=== PATIENT | female | born 1950 | race Caucasian/White ===

== ENCOUNTER 2019-07-29 10:02 | Day surgery (SDC) | payer MEDICARE ==
[2019-07-29] MEDS ORDERED: Xylocaine 1% Vial 30 ML PF IJ ONE (10:03)
[2019-07-29] MEDS ORDERED: Depo-Medrol 40 MG/ML IM ONE (10:03)
[2019-07-29] MEDS ORDERED: Sodium Chloride 0.9(Preservative Free) 10 ML IJ ONE (10:03)
[2019-07-29] MEDS ORDERED: DIPRIVAN 200 MG/20 ML IV ONE (10:56)
[2019-07-29] MEDS ORDERED: Ketamine HCl 50 MG/ML ONE (10:56)
--- NOTE | 2019-07-29 14:15 | XRAY ---
Indication: Lumbar YAN. Intraoperative fluoroscopy was provided for 15 seconds. 2 digital spot images submitted for interpretation demonstrates midline posterior needle tip projecting just posterior to the L5-S1 interspace. Correlate with intraoperative findings/report.
--- NOTE | 2019-07-29 14:20 | XRAY ---
15 seconds fluoroscopy time in surgery for lumbar YAN.
[2019-07-29] MEDS ORDERED: Lactated Ringers 1,000 ML IV ONE (15:24)
== END 2019-07-29 11:25 | disposition home or self-care (01) ==
LOC: SDC-PAIN 10:02
PROVIDERS: ATTEND Psychiatry & Neurology Pain Medicine
DX: M54.16 Radiculopathy, lumbar region (principal); I10 Essential (primary) hypertension; K21.9 Gastro-esophageal reflux disease without esophagitis; I89.0 Lymphedema, not elsewhere classified; H53.009 Unspecified amblyopia, unspecified eye; D18.09 Hemangioma of other sites; F41.8 Other specified anxiety disorders; Z79.899 Other long term (current) drug therapy
CPT/HCPCS: 62323; 72100; 77003; J1030; J2001; J2704; Q9966

== ENCOUNTER 2019-09-02 14:04 | Day surgery (SDC) | payer MEDICARE ==
[2019-09-02] MEDS ORDERED: Depo-Medrol 40 MG/ML IM ONE (14:05)
[2019-09-02] MEDS ORDERED: Sodium Chloride 0.9(Preservative Free) 10 ML IJ ONE (14:05)
[2019-09-02] MEDS ORDERED: DIPRIVAN 200 MG/20 ML IV ONE (15:01)
[2019-09-02] MEDS ORDERED: Ketamine HCl 50 MG/ML ONE (15:02)
[2019-09-02] MEDS ORDERED: Lactated Ringers 1,000 ML IV ONE (16:18)
--- NOTE | 2019-09-02 17:07 | XRAY ---
Indication: Left L4-S1 YAN. Intraoperative fluoroscopy was provided for 32 seconds. 4 digital spot images submitted for interpretation demonstrates posterior needle tips projecting over the expected course of the left L4 and L5 nerve roots. Small amount of contrast injected for needle tip placement. Correlate with intraoperative findings/report.seconds.
--- NOTE | 2019-09-02 17:13 | XRAY ---
32 seconds fluoroscopy time in surgery for left L4-S1 YAN.
== END 2019-09-02 15:33 | disposition home or self-care (01) ==
LOC: SDC-PAIN 14:04
PROVIDERS: ATTEND Psychiatry & Neurology Pain Medicine
DX: M54.16 Radiculopathy, lumbar region (principal); I10 Essential (primary) hypertension; K21.9 Gastro-esophageal reflux disease without esophagitis; I89.0 Lymphedema, not elsewhere classified; F41.8 Other specified anxiety disorders; Z79.899 Other long term (current) drug therapy
CPT/HCPCS: 72100; 77003; J1030; J2704

== ENCOUNTER 2019-09-23 12:48 | Day surgery (SDC) | payer MEDICARE ==
[2019-09-23] MEDS ORDERED: Depo-Medrol 40 MG/ML IM ONE (12:49)
[2019-09-23] MEDS ORDERED: Marcaine Mpf 0.5% Vial 30 Ml IJ ONE (12:49)
[2019-09-23] MEDS ORDERED: Versed 2 MG/2 ML Injection ONE (14:00)
[2019-09-23] MEDS ORDERED: DIPRIVAN 200 MG/20 ML IV ONE (14:07)
[2019-09-23] MEDS ORDERED: Ketamine HCl 50 MG/ML ONE (14:07)
--- NOTE | 2019-09-23 16:57 | XRAY ---
Indication: Right knee injection. Intraoperative fluoroscopy was provided for 6 seconds. Single digital spot image submitted for interpretation demonstrates needle tip projecting over the right femur intercondylar notch. Small amount of contrast injected for needle tip placement. Correlate with intraoperative findings/report.
--- NOTE | 2019-09-23 16:57 | XRAY ---
Indication: Left knee injection. Intraoperative fluoroscopy was provided for 12 seconds. 2 digital spot images submitted for interpretation demonstrates needle tip projecting over the left femur intercondylar notch. Small amount of contrast injected for needle tip placement. Correlate with intraoperative findings/report.
--- NOTE | 2019-09-23 17:04 | XRAY ---
6 seconds fluoroscopy time in surgery for right knee injection.
--- NOTE | 2019-09-23 17:04 | XRAY ---
12 seconds fluoroscopy time in surgery for left knee injection.
[2019-09-23] MEDS ORDERED: Lactated Ringers 1,000 ML IV ONE (17:05)
== END 2019-09-23 14:33 | disposition home or self-care (01) ==
LOC: SDC-PAIN 12:48
PROVIDERS: ATTEND Psychiatry & Neurology Pain Medicine
DX: M17.0 Bilateral primary osteoarthritis of knee (principal); I10 Essential (primary) hypertension; K21.9 Gastro-esophageal reflux disease without esophagitis; D18.09 Hemangioma of other sites; H53.009 Unspecified amblyopia, unspecified eye; I89.0 Lymphedema, not elsewhere classified; F41.8 Other specified anxiety disorders; Z79.899 Other long term (current) drug therapy
CPT/HCPCS: 20610; 73560; 77002; J1030; J2250; J2704; Q9966

== ENCOUNTER 2020-04-13 13:04 | Day surgery (SDC) | payer MEDICARE ==
[~2020-04-13 13:04] MED LIST: DIPRIVAN 200 MG/20 ML IV ONE; Ketamine HCl 50 MG/ML ONE
[2020-04-13] MEDS ORDERED: Marcaine 0.5% SDV 10 ML IJ ONE (13:05)
[2020-04-13] MEDS ORDERED: Depo-Medrol 40 MG/ML IM ONE (13:05)
--- NOTE | 2020-04-13 16:27 | XRAY ---
Indication: Left knee injection. Intraoperative fluoroscopy was provided for 6 seconds. Single digital spot images submitted for interpretation demonstrates anterior needle tip projecting left femur intercondylar notch. Small amount of contrast injected for needle tip placement. Correlate with intraoperative findings/report.
--- NOTE | 2020-04-13 16:29 | XRAY ---
Indication: Right knee injection. Intraoperative fluoroscopy was provided for 9 seconds. Single digital spot images submitted for interpretation demonstrates anterior needle tip projecting right femur intercondylar notch. Small amount of contrast injected for needle tip placement. Correlate with intraoperative findings/report.
[2020-04-13] MEDS ORDERED: Lactated Ringers 1,000 ML IV ONE (16:38)
--- NOTE | 2020-04-13 16:38 | XRAY ---
6 seconds fluoroscopy time in surgery for left intra-articular knee injection.
--- NOTE | 2020-04-13 16:48 | XRAY ---
9 seconds fluoroscopy time in surgery for right intra-articular knee injection.
== END 2020-04-13 15:01 | disposition home or self-care (01) ==
LOC: SDC-PAIN 13:04
PROVIDERS: ATTEND Psychiatry & Neurology Pain Medicine
DX: M17.0 Bilateral primary osteoarthritis of knee (principal); I10 Essential (primary) hypertension; K21.9 Gastro-esophageal reflux disease without esophagitis; I89.0 Lymphedema, not elsewhere classified; Z79.899 Other long term (current) drug therapy
CPT/HCPCS: 20610; 73560; 77002; J1030; J2704; Q9966

== ENCOUNTER 2020-06-08 09:07 | Day surgery (SDC) | payer MEDICARE ==
[2020-06-08] MEDS ORDERED: Sodium Chloride 0.9(Preservative Free) 10 ML IJ ONE (09:08)
[2020-06-08] MEDS ORDERED: Depo-Medrol 40 MG/ML IM ONE (09:08)
[2020-06-08] MEDS ORDERED: DIPRIVAN 200 MG/20 ML IV ONE (10:26)
[2020-06-08] MEDS ORDERED: Ketamine HCl 50 MG/ML ONE (10:26)
--- NOTE | 2020-06-08 11:41 | XRAY ---
38 seconds fluoroscopy time in surgery for left L4-S1 transforaminal YAN.
--- NOTE | 2020-06-08 11:41 | XRAY ---
Indication: Left L4-S1 transforaminal YAN. Intraoperative fluoroscopy was provided for 38 seconds. 4 digital spot images submitted for interpretation demonstrates posterior needle tips projecting over the expected left L4 and L5 nerve roots. Small amount of contrast injected for needle tip placement. Correlate with intraoperative findings/report.
[2020-06-08] MEDS ORDERED: Lactated Ringers 1,000 ML IV ONE (15:24)
== END 2020-06-08 11:05 | disposition home or self-care (01) ==
LOC: SDC-PAIN 09:07
PROVIDERS: ATTEND Psychiatry & Neurology Pain Medicine
DX: M54.16 Radiculopathy, lumbar region (principal); I10 Essential (primary) hypertension; K21.9 Gastro-esophageal reflux disease without esophagitis; I89.0 Lymphedema, not elsewhere classified; Z79.899 Other long term (current) drug therapy
CPT/HCPCS: 64483; 64484; 72100; 77003; J1030; J2704; Q9966

== ENCOUNTER 2020-06-29 13:23 | Day surgery (SDC) | payer MEDICARE ==
[~2020-06-29 13:23] MED LIST changes: +BREVIBLOC 100 MG/10 ML IV ONE; -Ketamine HCl 50 MG/ML ONE
[2020-06-29] MEDS ORDERED: Depo-Medrol 40 MG/ML IM ONE (13:24)
[2020-06-29] MEDS ORDERED: Sodium Chloride 0.9(Preservative Free) 10 ML IJ ONE (13:24)
[2020-06-29] MEDS ORDERED: Lactated Ringers 1,000 ML IV ONE (15:53)
--- NOTE | 2020-06-29 16:23 | XRAY ---
Indication: Left L4-S1 transforaminal YAN. Intraoperative fluoroscopy was provided for 36 seconds. 3 digital spot images submitted for interpretation demonstrates posterior needle tips projecting over the expected left L4 and L5 nerve roots. Small amount of contrast injected for needle tip placement. Correlate with intraoperative findings/report.
--- NOTE | 2020-06-29 16:29 | XRAY ---
36 seconds fluoroscopy time in surgery for left L4-S1 transforaminal YAN
== END 2020-06-29 16:08 | disposition home or self-care (01) ==
LOC: SDC-PAIN 13:23
PROVIDERS: ATTEND Psychiatry & Neurology Pain Medicine
DX: M54.16 Radiculopathy, lumbar region (principal); I10 Essential (primary) hypertension; K21.9 Gastro-esophageal reflux disease without esophagitis; I89.0 Lymphedema, not elsewhere classified; Z79.899 Other long term (current) drug therapy
CPT/HCPCS: 72100; 77003; J1030; J2704

== ENCOUNTER 2020-07-13 09:18 | Day surgery (SDC) | payer MEDICARE ==
[~2020-07-13 09:18] MED LIST changes: -BREVIBLOC 100 MG/10 ML IV ONE; +Ketamine HCl 50 MG/ML ONE
[2020-07-13] MEDS ORDERED: Sodium Chloride 0.9(Preservative Free) 10 ML IJ ONE (09:19)
[2020-07-13] MEDS ORDERED: Lactated Ringers 1,000 ML IV ONE (09:19)
[2020-07-13] MEDS ORDERED: Depo-Medrol 40 MG/ML IM ONE (09:19)
--- NOTE | 2020-07-13 13:12 | XRAY ---
Indication: Left L4-S1 transforaminal YAN. Intraoperative fluoroscopy was provided for 1 minute 10 seconds. 5 digital spot images submitted for interpretation demonstrates posterior needle tips projecting over the expected course of the left L5 and S1 nerve roots. Small amount of contrast injected for needle tip placement. Correlate with intraoperative findings/report.
--- NOTE | 2020-07-13 13:16 | XRAY ---
1 minute and 10 seconds fluoroscopy time in surgery for left L4-S1 transforaminal YAN
== END 2020-07-13 11:36 | disposition home or self-care (01) ==
LOC: SDC-PAIN 09:18
PROVIDERS: ATTEND Psychiatry & Neurology Pain Medicine
DX: M54.16 Radiculopathy, lumbar region (principal); I10 Essential (primary) hypertension; I89.0 Lymphedema, not elsewhere classified; H53.009 Unspecified amblyopia, unspecified eye; K21.9 Gastro-esophageal reflux disease without esophagitis; Z79.899 Other long term (current) drug therapy
CPT/HCPCS: 64483; 64484; 72100; 77003; J1030; J2704; Q9966

== ENCOUNTER 2020-11-16 09:56 | Day surgery (SDC) | payer MEDICARE ==
[2020-11-16] MEDS ORDERED: BUPIVACAINE 0.5% VIAL IJ ONE (09:57)
[2020-11-16] MEDS ORDERED: Depo-Medrol 40 MG/ML IM ONE (09:57)
[2020-11-16] MEDS ORDERED: DIPRIVAN 200 MG/20 ML IV ONE (12:14)
[2020-11-16] MEDS ORDERED: Ketamine HCl 50 MG/ML ONE (12:14)
--- NOTE | 2020-11-16 13:05 | XRAY ---
Indication: Left knee injection. Intraoperative fluoroscopy was provided for 8 seconds. Single digital spot image submitted for interpretation demonstrates needle tip projecting over the left femur intercondylar notch. Small amount of contrast injected for needle tip placement. Correlate with intraoperative findings/report.
--- NOTE | 2020-11-16 13:05 | XRAY ---
Indication: Right knee injection. Intraoperative fluoroscopy was provided for 14 seconds. Single digital spot image submitted for interpretation demonstrates needle tip projecting over the right femur intercondylar notch. Small amount of contrast injected for needle tip placement. Correlate with intraoperative findings/report.
--- NOTE | 2020-11-16 13:08 | XRAY ---
8 seconds fluoroscopy time in surgery for intra-articular injection of the left knee.
--- NOTE | 2020-11-16 13:08 | XRAY ---
14 seconds fluoroscopy time in surgery for intra-articular injection of the right knee.
[2020-11-16] MEDS ORDERED: Lactated Ringers 1,000 ML IV ONE (14:38)
== END 2020-11-16 12:53 | disposition home or self-care (01) ==
LOC: SDC-PAIN 09:56
PROVIDERS: ATTEND Psychiatry & Neurology Pain Medicine
DX: M17.0 Bilateral primary osteoarthritis of knee (principal); I10 Essential (primary) hypertension; K21.9 Gastro-esophageal reflux disease without esophagitis; H53.009 Unspecified amblyopia, unspecified eye; I89.0 Lymphedema, not elsewhere classified; Z79.899 Other long term (current) drug therapy
CPT/HCPCS: 20610; 73560; 77002; J1030; J2704; Q9966

== ENCOUNTER 2022-09-11 10:43 | Observation (INO) | payer MEDICARE, OTHER ==
[2022-09-11] MEDS ORDERED: Sodium Chloride 0.9% 1000 ML 1,000 ML IV SCH (12:15)
[2022-09-11 12:24] LABS: Absolute Neutrophil Ct (ANC) 5.79 x10^3/uL (1.4-6.9); Basophil (Absolute #) 0.03 x10^3/uL (0-0.4); Eosinophil % 1.5 % (0.00-5.0); Eosinophil (Absolute #) 0.12 x10^3/uL (0-0.5); Hematocrit 39.1 % (35-47); Hemoglobin 11.9 g/dL (12.0-16.0); Lymphocyte (Absolute #) 1.26 x10^3/uL (1.0-4.6); Lymphocytes % 16.2 % (24.0-44.0); Mean Cell Volume 96.5 fL (78-100); Mean Corpuscular Hemoglobin 29.4 pg (26-32); Mean Corpuscular Hgb Concent. 30.4 g/dL (32-36); Mean Platelet Volume 10.2 fL (7.5-11.0); Monocyte (Absolute #) 0.56 x10^3/uL (0.0-1.3); Monocytes % 7.2 % (0.0-12.0); Neutrophil % 74.3 % (36.0-66.0); Platelet Count 157 x10^3/uL (150-450); Red Blood Count 4.05 x10^6/uL (4.1-5.4); Red Cell Distribution Width 12.9 % (11.5-14.0); White Blood Count 7.8 x10^3/uL (4.0-10.5)
[2022-09-11 12:28] LABS: INFLUENZA A NEGATIVE (NEGATIVE); INFLUENZA B NEGATIVE (NEGATIVE); RESPIRATORY SYNCTIAL VIRUS NEGATIVE (Negative); SARS-CoV-2 Xpert Express NEGATIVE (NEGATIVE)
[2022-09-11 12:43] LABS: ALBUMIN 4.1 g/dL (3.5-5.0); ALKALINE PHOSPHATASE 74 U/L (38-126); ANION GAP 12.9 MEQ/L (5-15); BLOOD UREA NITROGEN 23 mg/dL (7-17); CHLORIDE 109 mmol/L (98-107); Calcium 8.8 mg/dL (8.4-10.2); Carbon Dioxide 22 mmol/L (22-30); Creatinine 1 0.92 mg/dL (0.52-1.04); EST GLOMERULAR FILTRATION RATE > 60.0 ML/MIN; Glucose 98 mg/dL (74-106); Potassium 3.6 mmol/L (3.5-5.1); SGOT/AST 27 U/L (14-36); SGPT/ALT 31 U/L (0-35); SODIUM 140 mmol/L (137-145); Total Protein 7.3 g/dL (6.3-8.2)
[2022-09-11] MEDS ORDERED: MELATONIN PO PRN (12:50)
[2022-09-11] MEDS ORDERED: CLARITIN 10 MG PO PRN (12:50)
[2022-09-11] MEDS ORDERED: ENOXAPARIN SODIUM SQ SCH (14:00)
[2022-09-11] MEDS ORDERED: MEDICATION INTERVENTION MC SCH (14:00)
[2022-09-11] MEDS ORDERED: PHARMACY DOSING REQUEST MC ONE (14:29)
[2022-09-11] MEDS ORDERED: ENOXAPARIN SODIUM SQ ONE (15:00)
--- NOTE | 2022-09-11 15:16 | XRAY ---
Indication: Dyspnea on exertion. Comparison: November 16, 2007 PA/lateral chest again demonstrates minimal left midlung fibrosis/scarring and tiny left base calcified granuloma. No focal infiltrate, consolidation, or large effusion. Heart not enlarged. Bony thorax intact again with osteopenia, degenerative changes, and double curvature scoliosis. Impression: Continued nonacute chest with chronic features.
--- NOTE | 2022-09-11 15:36 | XRAY ---
Indication: Dyspnea on exertion. Elevated d-dimer. Multiple contiguous axial images obtained through the chest using 80 cc Isovue 370 contrast and PE protocol. Comparison: None Good opacification of the pulmonary arteries to include the lobar and segmental branches. There is extensive pulmonary emboli in the left and right main pulmonary arteries. This further extends into all lobar branches bilaterally and right lower lobe segmental branches. Heart not enlarged. Aorta is normal in course and caliber. Small subcarinal calcified nodes. No pathologic mediastinal/hilar lymphadenopathy. Lungs demonstrates minimal mid to lower lung subsegmental atelectasis/scarring bilaterally. Small peripheral left lower lobe calcified granulomas. No infiltrate, effusion, or pneumothorax. Bony thorax intact with mild osteopenia, mild/moderate degenerative changes throughout the spine, and mild double curvature thoracolumbar scoliosis. Limited upper abdomen demonstrates mild fatty liver, splenic calcified granulomas, and cholecystectomy clips. Impression: 1. Extensive and diffuse bilateral pulmonary emboli as detailed. 2. Incidental atelectasis/scarring, fatty liver, chronic bony findings, and old granulomatous disease. Comment: Immediate telephone report will be given to the ordering clinician following this dictation.
[2022-09-11] MEDS ORDERED: XARELTO 10 MG TABLET PO SCH (16:00)
[2022-09-11] MEDS: MAG-OX 400 PO SCH (20:29)
[2022-09-11] MEDS: Vitamin C 500 MG PO SCH (20:29)
[2022-09-11] MEDS: ZOLOFT 50 MG TABLET PO SCH (20:29)
[2022-09-11] MEDS: Protonix 40MG Tablet PO SCH (20:30)
[2022-09-11] MEDS: TOPIRAMATE PO SCH (20:30)
[2022-09-11] MEDS: Klor Con PO SCH (20:31)
--- NOTE | 2022-09-11 20:58 | XRAY ---
Indication: Pulmonary embolus. Elevated d-dimer. 2-dimensional sonogram ankle Doppler imaging of the major venous vessels of the left and right leg performed. Comparison: None Examination of the right leg demonstrates nonoccluding thrombi in the distal superficial femoral, popliteal, and posterior tibial veins. No thrombus in the remaining common femoral, proximal superficial femoral, deep femoral, and greater saphenous veins. Examination of the left leg demonstrates nonoccluding thrombi in the popliteal and posterior tibial veins. No thrombus in the remaining common femoral, superficial femoral, deep femoral, and greater saphenous veins. Impression: Nonoccluding bilateral DVTs as detailed. Comment: Preliminary report was given to patient's nurse.
[2022-09-11] MEDS ORDERED: DESMOPRESSIN ACETATE 0.2 MG PO SCH (22:00)
[2022-09-11] MEDS ORDERED: NON-FORMULARY ITEM (Omeprazole [Omeprazole] 40 MG Capsule.Dr) PO SCH (22:00)
[2022-09-11] MEDS ORDERED: MAG-OX 400 PO SCH (22:00)
[2022-09-11] MEDS ORDERED: NON-FORMULARY ITEM (Potassium Gluconate [Potassium Gluconate] 500 MG Tablet) PO SCH (22:00)
[2022-09-11] MEDS ORDERED: NON-FORMULARY ITEM (Topiramate 100 Mg*** [Topamax 100 Mg***] 100 MG Tablet) PO SCH (22:00)
[2022-09-11] MEDS ORDERED: Lopressor 50 MG PO SCH (22:00)
[2022-09-11] MEDS ORDERED: NON-FORMULARY ITEM (Magnesium Oxide [Magnesium] 500 MG Capsule) PO SCH (22:00)
[2022-09-12] MEDS ORDERED: ENOXAPARIN SODIUM SQ SCH (06:00)
--- NOTE | 2022-09-12 07:28 | PCM.HP.ADD ---
Addendum to History & Physical - History & Physical Addendum Addendum to History & Physical: This certifies that the History & Physical in the electronic chart reflects the current health status of the patient. If there are changes in the H&P these changes/exceptions are listed as follows.
--- NOTE | 2022-09-12 07:33 | PCM.NOTE ---
Date and Time: 09/12/22727 Subjective Assessment: still very short of breath. Last 24 hours events noted - Review of Systems Constitutional: No Fever, No Chills Eyes: No Symptoms Ears, Nose, & Throat: No Symptoms Respiratory: Short Of Breath, No Cough Cardiac: No Chest Pain, No Edema, No Syncope Abdominal/Gastrointestinal: No Abdominal Pain, No Nausea, No Vomiting, No Diarrhea Genitourinary Symptoms: No Dysuria Musculoskeletal: No Back Pain, No Neck Pain Skin: No Rash Neurological: No Dizziness, No Focal Weakness, No Sensory Changes Psychological: No Symptoms Endocrine: No Symptoms Hematologic/Lymphatic: No Symptoms Immunological/Allergic: No Symptoms Objective Exam General Appearance: no apparent distress, alert Neurologic Exam: alert, oriented x 3, cooperative, normal mood/affect, nml cerebellar function, sensation nml, No motor deficits Skin Exam: normal color, warm, dry Eye Exam: PERRL, EOMI, eyes nml inspection Ears, Nose, Throat Exam: normal ENT inspection, pharynx normal, moist mucous membranes Neck Exam: normal inspection, non-tender, supple, full range of motion Respiratory Exam: respiratory distress, diminished breath sounds, wheezing Cardiovascular Exam: regular rate/rhythm, normal heart sounds Gastrointestinal/Abdomen Exam: soft, No tenderness, No mass Extremity Exam: normal inspection, normal range of motion Back Exam: normal inspection, normal range of motion, No CVA tenderness, No vertebral tenderness Pelvic Exam: deferred Rectal Exam: deferred OBJECTIVE DATA Vital Signs: Vital Signs - 24 hr Temp Pulse Resp BP Pulse Ox 09/12/22 07:23 97.4 F 72 16 133/74 96 09/12/22 04:00 97.5 F 69 20 97/55 95 09/11/22 23:59 97.3 F 73 16 111/55 92 L 09/11/22 20:03 96 09/11/22 20:00 97.7 F 88 18 114/55 97 09/11/22 16:00 97.5 F 70 18 124/78 96 09/11/22 13:46 98 09/11/22 10:58 97.5 F 93 H 18 160/72 95 Pain Assessment - Last Documented Pain Intensity 0 Intake and Output: Intake & Output 09/09/22 09/10/22 09/11/22 09/12/22 11:59 11:59 11:59 11:59 Intake Total 1571 Balance 1571 Weight 104.2 kg Lab Results: Lab Results-Last 24 Hours 09/11/22 09/11/22 09/11/22 Range/Units 11:50 12:16 12:16 WBC 7.8 (4.0-10.5) x10^3/uL RBC 4.05 L (4.1-5.4) x10^6/uL Hgb 11.9 L (12.0-16.0) g/dL Hct 39.1 (35-47) % MCV 96.5 (78-100) fL MCH 29.4 (26-32) pg MCHC 30.4 L (32-36) g/dL RDW 12.9 (11.5-14.0) % Plt Count 157 (150-450) x10^3/uL MPV 10.2 (7.5-11.0) fL Gran % 74.3 H (36.0-66.0) % Immature Gran % (Auto) 0.4 (0.00-0.4) % Nucleat RBC Rel Count 0.0 (0.00-0.1) % Eos # (Auto) 0.12 (0-0.5) x10^3/uL Immature Gran # (Auto) 0.03 (0.00-0.03) x10^3u/L Absolute Lymphs (auto) 1.26 (1.0-4.6) x10^3/uL Absolute Monos (auto) 0.56 (0.0-1.3) x10^3/uL Absolute Nucleated RBC 0.00 (0.00-0.01) x10^3u/L Lymphocytes % 16.2 L (24.0-44.0) % Monocytes % 7.2 (0.0-12.0) % Eosinophils % 1.5 (0.00-5.0) % Basophils % 0.4 (0.0-0.4) % Absolute Granulocytes 5.79 (1.4-6.9) x10^3/uL Basophils # 0.03 (0-0.4) x10^3/uL D-Dimer (0.0-0.50) mg/L Sodium 140 (137-145) mmol/L Potassium 3.6 (3.5-5.1) mmol/L Chloride 109 H (98-107) mmol/L Carbon Dioxide 22 (22-30) mmol/L Anion Gap 12.9 (5-15) MEQ/L BUN 23 H (7-17) mg/dL Creatinine 0.92 (0.52-1.04) mg/dL Estimated GFR > 60.0 ML/MIN Glucose 98 (74-106) mg/dL Calcium 8.8 (8.4-10.2) mg/dL Total Bilirubin 0.40 (0.2-1.3) mg/dL AST 27 (14-36) U/L ALT 31 (0-35) U/L Alkaline Phosphatase 74 (38-126) U/L NT-Pro-B Natriuret Pep (0-900) pg/mL Serum Total Protein 7.3 (6.3-8.2) g/dL Albumin 4.1 (3.5-5.0) g/dL Influenza Type A Ag NEGATIVE (NEGATIVE) Influenza Type B Ag NEGATIVE (NEGATIVE) RSV (PCR) NEGATIVE (Negative) SARS-CoV-2 (PCR) NEGATIVE (NEGATIVE) 09/11/22 09/11/22 Range/Units 12:16 12:18 WBC (4.0-10.5) x10^3/uL RBC (4.1-5.4) x10^6/uL Hgb (12.0-16.0) g/dL Hct (35-47) % MCV (78-100) fL MCH (26-32) pg MCHC (32-36) g/dL RDW (11.5-14.0) % Plt Count (150-450) x10^3/uL MPV (7.5-11.0) fL Gran % (36.0-66.0) % Immature Gran % (Auto) (0.00-0.4) % Nucleat RBC Rel Count (0.00-0.1) % Eos # (Auto) (0-0.5) x10^3/uL Immature Gran # (Auto) (0.00-0.03) x10^3u/L Absolute Lymphs (auto) (1.0-4.6) x10^3/uL Absolute Monos (auto) (0.0-1.3) x10^3/uL Absolute Nucleated RBC (0.00-0.01) x10^3u/L Lymphocytes % (24.0-44.0) % Monocytes % (0.0-12.0) % Eosinophils % (0.00-5.0) % Basophils % (0.0-0.4) % Absolute Granulocytes (1.4-6.9) x10^3/uL Basophils # (0-0.4) x10^3/uL D-Dimer 12.30 H* (0.0-0.50) mg/L Sodium (137-145) mmol/L Potassium (3.5-5.1) mmol/L Chloride (98-107) mmol/L Carbon Dioxide (22-30) mmol/L Anion Gap (5-15) MEQ/L BUN (7-17) mg/dL Creatinine (0.52-1.04) mg/dL Estimated GFR ML/MIN Glucose (74-106) mg/dL Calcium (8.4-10.2) mg/dL Total Bilirubin (0.2-1.3) mg/dL AST (14-36) U/L ALT (0-35) U/L Alkaline Phosphatase (38-126) U/L NT-Pro-B Natriuret Pep 4070 H (0-900) pg/mL Serum Total Protein (6.3-8.2) g/dL Albumin (3.5-5.0) g/dL Influenza Type A Ag (NEGATIVE) Influenza Type B Ag (NEGATIVE) RSV (PCR) (Negative) SARS-CoV-2 (PCR) (NEGATIVE) Radiology Exams: Radiology Procedures Category Date Time Status ABDOMEN AND PELVIS W/0 CONTRAS [CT] Urgent Exams 09/11/22 15:59 Taken CHEST 2 VIEWS (PA AND LAT) Stat Exams 09/11/22 12:22 Completed CHEST WITH CONTRAST [CT] Routine Exams 09/11/22 12:09 Completed ECHO W/2D AND DOPPLER [US] Routine Exams 09/12/22 16:03 Ordered VENOUS BILATERAL EXTREMITY [US] Urgent Exams 09/11/22 16:03 Completed US/VENOUS BILATERAL EXTREMITY Indication: Pulmonary embolus. Elevated d-dimer. 2-dimensional sonogram ankle Doppler imaging of the major venous vessels of the left and right leg performed. Comparison: None Examination of the right leg demonstrates nonoccluding thrombi in the distal superficial femoral, popliteal, and posterior tibial veins. No thrombus in the remaining common femoral, proximal superficial femoral, deep femoral, and greater saphenous veins. Examination of the left leg demonstrates nonoccluding thrombi in the popliteal and posterior tibial veins. No thrombus in the remaining common femoral, superficial femoral, deep femoral, and greater saphenous veins. CT/CHEST WITH CONTRAST Indication: Dyspnea on exertion. Elevated d-dimer. Multiple contiguous axial images obtained through the chest using 80 cc Isovue 370 contrast and PE protocol. Comparison: None Good opacification of the pulmonary arteries to include the lobar and segmental branches. There is extensive pulmonary emboli in the left and right main pulmonary arteries. This further extends into all lobar branches bilaterally and right lower lobe segmental branches. Heart not enlarged. Aorta is normal in course and caliber. Small subcarinal calcified nodes. No pathologic mediastinal/hilar lymphadenopathy. Lungs demonstrates minimal mid to lower lung subsegmental atelectasis/scarring bilaterally. Small peripheral left lower lobe calcified granulomas. No infiltrate, effusion, or pneumothorax. Bony thorax intact with mild osteopenia, mild/moderate degenerative changes throughout the spine, and mild double curvature thoracolumbar scoliosis. Limited upper abdomen demonstrates mild fatty liver, splenic calcified granulomas, and cholecystectomy clips. Impression: 1. Extensive and diffuse bilateral pulmonary emboli as detailed. 2. Incidental atelectasis/scarring, fatty liver, chronic bony findings, and old granulomatous disease. Assessment/Plan (1) Pulmonary embolism and infarction Current Visit: Yes Status: Acute Assessment & Plan: Chief Complaint Diagnosis SHORTNESS OF BREATH, RULE OUT PE Allergies Allergy/AdvReac Type Severity Reaction Status Date / Time Sulfa (Sulfonamide Allergy Verified 09/11/22 11:34 Antibiotics) acetaminophen [From Vicodin] AdvReac Verified 09/11/22 11:34 azithromycin AdvReac Verified 09/11/22 11:34 hydrocodone AdvReac Verified 09/11/22 11:34 oxycodone AdvReac Verified 09/11/22 11:34 Vital Signs (Last 24 hours) Temp Pulse Resp BP Pulse Ox 09/12/22 07:23 97.4 F 72 16 133/74 96 09/12/22 04:00 97.5 F 69 20 97/55 95 09/11/22 23:59 97.3 F 73 16 111/55 92 L 09/11/22 20:03 96 09/11/22 20:00 97.7 F 88 18 114/55 97 09/11/22 16:00 97.5 F 70 18 124/78 96 09/11/22 13:46 98 09/11/22 10:58 97.5 F 93 H 18 160/72 95 Home Medications Medication Instructions Recorded Confirmed Last Taken Type Alendronate Sodium [Fosamax] 70 mg PO WEEKLY 09/11/22 09/11/22 09/11/22 History Ascorbic Acid 500 mg [Vitamin C 500 mg PO BID 09/11/22 09/11/22 09/11/22 History 500 MG] Calcium Citrate/Vitamin D3 1 tab PO DAILY 09/11/22 09/11/22 09/11/22 History [Citracal + D Maximum Caplet] Desmopressin Acetate [Ddavp] 0.2 mg PO HS 09/11/22 09/11/22 09/10/22 History Furosemide 20 mg [Lasix 20 2 tab PO DAILY 09/11/22 09/11/22 09/11/22 History mg] Lactobacillus Acidophilus 10 mg PO DAILY 09/11/22 09/11/22 09/11/22 History [Acidophilus] Loratadine 10 mg [Claritin 10 10 mg PO DAILY PRN 09/11/22 09/11/22 Unknown History mg] Magnesium Oxide [Magnesium] 1,000 mg PO HS 09/11/22 09/11/22 09/10/22 History Magnesium Oxide [Magnesium] 500 mg PO DAILY 09/11/22 09/11/22 09/11/22 History Melatonin 3 mg PO HS PRN PRN 09/11/22 09/11/22 09/10/22 History Metoprolol Tartrate 50 mg 100 mg PO HS 09/11/22 09/11/22 09/10/22 History [Lopressor 50 MG] Multivit-Min/FA/Lycopen/Lutein 1 tab PO DAILY 09/11/22 09/11/22 09/11/22 History [Centrum Silver Tablet] Omeprazole 40 mg PO BID 09/11/22 09/11/22 09/11/22 History Potassium Gluconate 550 mg PO BID 09/11/22 09/11/22 09/11/22 History Sertraline HCl 50 mg [Zoloft 50 25 mg PO BID 09/11/22 09/11/22 09/11/22 History mg Tablet] Topiramate 100 mg [Topamax 100 150 mg PO BID 09/11/22 09/11/22 09/11/22 History MG] Current Medications Generic Name Dose Route Start Last Admin Trade Name Freq PRN Reason Stop Dose Admin Alendronate Sodium 70 mg 09/18/22 06:00 Alendronate Sodium 70 Mg Tablet PO 10/18/22 05:59 WEEKLY KEHINDE Ascorbic Acid 500 mg 09/11/22 22:00 09/11/22 20:29 Ascorbic Acid 500 Mg Tablet PO 10/11/22 21:59 500 mg BID KEHINDE Administration Calcium Carbonate 1 tab 09/12/22 10:00 Calcium Carbonate 500 Mg/Vitamin D 1 Tab Tablet PO 10/12/22 09:59 DAILY KEHINDE Furosemide 40 mg 09/12/22 10:00 Furosemide 20 Mg Tablet PO 10/12/22 09:59 DAILY KEHINDE Sodium Chloride 1,000 mls @ 30 mls/hr 09/11/22 12:15 09/11/22 13:32 Sodium Chloride 0.9% 1000 Ml IV 10/11/22 12:14 30 mls/hr .Q24H KEHINDE Administration Lactobacillus Acidophilus 1 tab 09/12/22 10:00 Lactobacillus Acidophilus 1 Tab Tablet PO 10/12/22 09:59 DAILY KEHINDE Loratadine 10 mg 09/11/22 12:50 Loratadine 10 Mg Tablet PO 10/11/22 12:49 QDP PRN ALLERGIES Magnesium Oxide 400 mg 09/12/22 10:00 Magnesium Oxide 400 Mg Tablet PO 10/12/22 09:59 DAILY KEHINDE Magnesium Oxide 1,000 mg 09/11/22 22:00 09/11/22 20:37 Magnesium Oxide 400 Mg Tablet PO 10/11/22 21:59 1,000 mg HS KEHINDE Administration Melatonin 3 mg 09/11/22 12:50 Melatonin 3 Mg Tablet PO 10/11/22 12:49 HS PRN PRN INSOMNIA Metoprolol Tartrate 100 mg 09/11/22 22:00 09/11/22 20:29 Metoprolol Tartrate 50 Mg Tablet PO 10/11/22 21:59 100 mg HS KEHINDE Administration Miscellaneous Information 0 each 09/11/22 14:00 Medication Intervention 1 Each Each 10/11/22 13:59 .RN TO CHECK WITH PT [facility] Multivitamins Therapeutic 1 tab 09/12/22 10:00 Multivitamins,Therapeutic 1 Tab Tab PO 10/12/22 09:59 DAILY KEHINDE Pantoprazole Sodium 40 mg 09/11/22 22:00 09/11/22 20:30 Protonix (Pantoprazole) 40 Mg Tablet PO 10/11/22 21:59 40 mg BID KEHINDE Administration Potassium Chloride 10 meq 09/11/22 22:00 09/11/22 20:31 Potassium Chloride Tab 10 Meq Tab PO 10/11/22 21:59 10 meq BID KEHINDE Administration Rivaroxaban 15 mg 09/12/22 10:00 Rivaroxaban 10 Mg Tablet PO 10/02/22 22:01 BID KEHINDE Sertraline HCl 25 mg 09/11/22 22:00 09/11/22 20:29 Sertraline Hcl 50 Mg Tab PO 10/11/22 21:59 25 mg BID KEHINDE Administration Topiramate 150 mg 09/11/22 22:00 09/11/22 20:30 Topiramate 50 Mg Tablet PO 10/11/22 21:59 150 mg BID KEHINDE Administration Discontinued Medications Generic Name Dose Route Start Last Admin Trade Name Freq PRN Reason Stop Dose Admin Enoxaparin Sodium 40 mg 09/11/22 14:00 09/11/22 13:32 Enoxaparin Sodium 40 Mg/0.4 Ml Syringe SQ 10/11/22 13:59 40 mg DAILY KEHINDE Administration Enoxaparin Sodium 60 mg 09/11/22 15:00 09/11/22 15:49 Enoxaparin Sodium 60 Mg/0.6 Ml Syringe SQ 09/11/22 15:01 60 mg NOW ONE Administration Enoxaparin Sodium 100 mg 09/12/22 06:00 Enoxaparin Sodium 100 Mg/Ml Syringe SQ 10/12/22 05:59 Q12H KEHINDE Non-Formulary Medication 1 each 09/11/22 14:29 09/11/22 15:49 Pharmacy Dosing Request 09/11/22 14:30 1 each STAT ONE Administration Rivaroxaban 15 mg 09/11/22 16:00 09/11/22 16:46 Rivaroxaban 10 Mg Tablet PO 10/01/22 22:01 Not Given BID KEHINDE Intake & Output (Last 24 hours) 09/09/22 09/10/22 09/11/22 09/12/22 11:59 11:59 11:59 11:59 Intake Total 1571 Balance 1571 Weight 104.2 kg Laboratory Results (Last 24 hours) 09/11/22 09/11/22 09/11/22 12:18 12:16 12:16 WBC RBC Hgb Hct MCV MCH MCHC RDW Plt Count MPV Gran % Immature Gran % (Auto) Nucleat RBC Rel Count Eos # (Auto) Immature Gran # (Auto) Absolute Lymphs (auto) Absolute Monos (auto) Absolute Nucleated RBC Lymphocytes % Monocytes % Eosinophils % Basophils % Absolute Granulocytes Basophils # D-Dimer 12.30 H* Sodium 140 Potassium 3.6 Chloride 109 H Carbon Dioxide 22 Anion Gap 12.9 BUN 23 H Creatinine 0.92 Estimated GFR > 60.0 Glucose 98 Calcium 8.8 Total Bilirubin 0.40 AST 27 ALT 31 Alkaline Phosphatase 74 NT-Pro-B Natriuret Pep 4070 H Serum Total Protein 7.3 Albumin 4.1 Influenza Type A Ag Influenza Type B Ag RSV (PCR) SARS-CoV-2 (PCR) 09/11/22 09/11/22 12:16 11:50 WBC 7.8 RBC 4.05 L Hgb 11.9 L Hct 39.1 MCV 96.5 MCH 29.4 MCHC 30.4 L RDW 12.9 Plt Count 157 MPV 10.2 Gran % 74.3 H Immature Gran % (Auto) 0.4 Nucleat RBC Rel Count 0.0 Eos # (Auto) 0.12 Immature Gran # (Auto) 0.03 Absolute Lymphs (auto) 1.26 Absolute Monos (auto) 0.56 Absolute Nucleated RBC 0.00 Lymphocytes % 16.2 L Monocytes % 7.2 Eosinophils % 1.5 Basophils % 0.4 Absolute Granulocytes 5.79 Basophils # 0.03 D-Dimer Sodium Potassium Chloride Carbon Dioxide Anion Gap BUN Creatinine Estimated GFR Glucose Calcium Total Bilirubin AST ALT Alkaline Phosphatase NT-Pro-B Natriuret Pep Serum Total Protein Albumin Influenza Type A Ag NEGATIVE Influenza Type B Ag NEGATIVE RSV (PCR) NEGATIVE SARS-CoV-2 (PCR) NEGATIVE Orders (Last 24 hours) Category Date Time Status Up as tolerated [Activity as Tolerated] TOLERATED Activity 09/11/22 11:49 Active Observation [Place in Observation] ROUTINE Care 09/11/22 12:07 Active House Regular Diet Diet 11/29/22 Dinner Active House Regular Diet Diet 09/11/22 Lunch Completed ABDOMEN AND PELVIS W/0 CONTRAS [CT] Urgent Exams 09/11/22 15:59 Taken CHEST 2 VIEWS (PA AND LAT) Stat Exams 09/11/22 12:22 Completed CHEST WITH CONTRAST [CT] Routine Exams 09/11/22 12:09 Completed ECHO W/2D AND DOPPLER [US] Routine Exams 09/12/22 16:03 Ordered VENOUS BILATERAL EXTREMITY [US] Urgent Exams 09/11/22 16:03 Completed BNP [NT PRO BNP] Routine Lab 09/11/22 12:18 Completed CBC W DIFF Routine Lab 09/11/22 12:16 Completed CMP Routine Lab 09/11/22 12:16 Completed COVID/FLU/RSV Panel Stat Lab 09/11/22 11:50 Completed D-DIMER QUANTITATIVE Routine Lab 09/11/22 12:16 Completed Alendronate Sodium 70 mg [Fosamax 70 MG] Med 09/18/22 06:00 Active 70 mg PO WEEKLY Ascorbic Acid 500 mg [Vitamin C 500 MG] Med 09/11/22 22:00 Active 500 mg PO BID Calcium Carb/Vitamin D 500 mg* [Calcium 500MG W/Vit D Med 09/12/22 10:00 Active Tablet] 1 tab PO DAILY Enoxaparin Sodium [Enoxaparin Sodium] Med 09/12/22 06:00 Discontinued 100 mg SQ Q12H Enoxaparin Sodium [Enoxaparin Sodium] Med 09/11/22 14:00 Discontinued 40 mg SQ DAILY Enoxaparin Sodium [Enoxaparin Sodium] Med 09/11/22 15:00 Discontinued 60 mg SQ NOW ONE Furosemide 20 mg [Lasix 20 mg] Med 09/12/22 10:00 Active 40 mg PO DAILY Lactobacillus Acidophilus [Acidophilus TABLET] Med 09/12/22 10:00 Active 1 tab PO DAILY Loratadine 10 mg [Claritin 10 mg] Med 09/11/22 12:50 Active 10 mg PO QDP PRN Magnesium Oxide 400 mg [Mag-Ox 400] Med 09/11/22 22:00 Active 1,000 mg PO HS Magnesium Oxide 400 mg [Mag-Ox 400] Med 09/12/22 10:00 Active 400 mg PO DAILY Medication Intervention Med 09/11/22 14:00 Active See Dose Instructions [facility] .RN TO CHECK WITH PT Melatonin Med 09/11/22 12:50 Active 3 mg PO HS PRN PRN Metoprolol Tartrate 50 mg [Lopressor 50 MG] Med 09/11/22 22:00 Active 100 mg PO HS Multivitamins,Therapeutic Tab* [Theragran Multivitamin* Med 09/12/22 10:00 Active ] 1 tab PO DAILY NaCl 0.9% 1000 ml [Sodium Chloride 0.9% 1000 ML] 1,000 Med 09/11/22 12:15 Active ml IV 30 mls/hr PANTOPRAZOLE 40 mg Tablet [Protonix 40MG Tablet] Med 09/11/22 22:00 Active 40 mg PO BID Pharmacy Dosing Request Med 09/11/22 14:29 Discontinued 1 each STAT ONE Potassium Chloride Tab* [Klor Con] Med 09/11/22 22:00 Active 10 meq PO BID Rivaroxaban 10 mg Tablet [Xarelto 10 mg Tablet] Med 09/11/22 16:00 Discontinued 15 mg PO BID Rivaroxaban 10 mg Tablet [Xarelto 10 mg Tablet] Med 09/12/22 10:00 Active 15 mg PO BID Sertraline HCl 50 mg [Zoloft 50 mg Tablet] Med 09/11/22 22:00 Active 25 mg PO BID Topiramate Med 09/11/22 22:00 Active 150 mg PO BID EKG ROUTINE RT 09/11/22 12:11 Completed Oxygen Nasal Cannula 2 lpm RT 09/11/22 12:10 Active Pulse Oximetry .spot check RT 09/11/22 13:45 Active RT Screen per Nursing Assess ONCE RT 09/11/22 12:10 Completed Patient Care Notes (Last 24 hours) 09/11/22 18:19 Nursing Note by Leoncio Garces Home medication desmopressin verified. Initialized on 09/11/22 18:19 - END OF NOTE Code(s): I26.99 - OTHER PULMONARY EMBOLISM WITHOUT ACUTE COR PULMONALE (2) Deep vein thrombosis (DVT) Current Visit: Yes Status: Acute Qualifiers: DVT location: lower extremity Affected thrombotic vein of extremity: femoral Chronicity: acute Laterality: bilateral Qualified Code(s): I82.413 - Acute embolism and thrombosis of femoral vein, bilateral Code(s): I82.409 - ACUTE EMBOLISM AND THOMBOS UNSP DEEP VN UNSP LOWER EXTREMITY (3) Dyspnea on exertion Current Visit: Yes Status: Acute Code(s): R06.09 - OTHER FORMS OF DYSPNEA
[2022-09-12] MEDS: Klor Con PO SCH (08:35)
[2022-09-12] MEDS: Vitamin C 500 MG PO SCH (08:36)
[2022-09-12] MEDS: Protonix 40MG Tablet PO SCH (08:36)
[2022-09-12] MEDS: TOPIRAMATE PO SCH (08:36)
[2022-09-12] MEDS: MAG-OX 400 PO SCH (08:36)
[2022-09-12] MEDS: ZOLOFT 50 MG TABLET PO SCH (08:37)
[2022-09-12] MEDS ORDERED: VITAMIN D3 PO SCH (10:00)
[2022-09-12] MEDS ORDERED: NON-FORMULARY ITEM (Lactobacillus Acidophilus [Acidophilus] 1 EACH Capsule) PO SCH (10:00)
[2022-09-12] MEDS ORDERED: THERAGRAN MULTIVITAMIN PO SCH (10:00)
[2022-09-12] MEDS ORDERED: XARELTO 10 MG TABLET PO SCH (10:00)
[2022-09-12] MEDS ORDERED: Acidophilus TABLET PO SCH (10:00)
[2022-09-12] MEDS ORDERED: CALCIUM CITRATE PO SCH (10:00)
[2022-09-12] MEDS ORDERED: NON-FORMULARY ITEM (Magnesium Oxide [Magnesium] 500 MG Capsule) PO SCH (10:00)
[2022-09-12] MEDS ORDERED: LASIX 20 MG PO SCH (10:00)
[2022-09-12] MEDS ORDERED: Calcium 500MG W/Vit D Tablet PO SCH (10:00)
[2022-09-12] MEDS ORDERED: NON-FORMULARY ITEM (Multivit-Min/Fa/Lycopen/Lutein [Centrum Silver Tablet] 1 EACH Tablet) PO SCH (10:00)
[2022-09-12] MEDS ORDERED: [UNRECOGNIZED DRUG - OTHER] PO SCH (10:00)
[2022-09-12] MEDS ORDERED: PHARMACY DOSING REQUEST MC ONE (10:40)
[2022-09-12 11:19] LABS: INR 1.16 (0.8-3.0); PROTIME 12.1 SECONDS (9.4-12.5)
[2022-09-12] MEDS ORDERED: JANTOVEN PO ONE (13:00)
--- NOTE | 2022-09-12 13:31 | ECHO ---
Transthoracic echocardiographic examination and color Doppler was done on 09/12/2022. INDICATION: Shortness of breath, elevated BNP, history of hypertension. IMPRESSION: 1) NO REGIONAL WALL MOTION ABNORMALITY. ESTIMATED GLOBAL LEFT VENTRICULAR EJECTION FRACTION OF AROUND 60%. 2) MILD TRICUSPID REGURGITATION. RIGHT VENTRICULAR SYSTOLIC PRESSURE OF 67 MM OF MERCURY SUGGESTIVE OF MODERATE TO SEVERE PULMONARY HYPERTENSION. 3) MILD MITRAL REGURGITATION. 4) LEFT VENTRICULAR HYPERTROPHY. 5) LEFT VENTRICLE DIASTOLIC DYSFUNCTION. 6) MILDLY ELEVATED INFERIOR VENA CAVA. 7) MILDLY DILATED RIGHT SIDE CHAMBERS. The left ventricle is visualized and demonstrated adequate motion of all the segments. Estimated global left ventricular ejection fraction around 60%. There is mild left ventricular hypertrophy. The mitral valve is seen and this opens adequately. There is mild mitral regurgitation. Left atrium is normal. Tissue Doppler study of the lateral mitral annulus is suggestive of left ventricle diastolic dysfunction. The aortic valve opens adequately. There is no significant gradient across the left ventricular outflow tract. The right side chambers are mildly dilated. There is mild tricuspid regurgitation. The right ventricular systolic pressure of 67 mm of Mercury suggestive of moderate to severe pulmonary hypertension. The inferior vena cava is mildly dilated.
--- NOTE | 2022-09-12 13:43 | XRAY ---
Exam: CT of the abdomen and pelvis without IV contrast from 09/11/2022. CTDI: 19.06 mGy Comparison: CT of the chest with IV contrast from 09/11/2022. Indication: 72-year-old female with elevated d-dimer; elevated BNP; extensive diffuse bilateral pulmonary emboli diagnosed on yesterday's chest CT scan with IV contrast; shortness of breath for 6 days. Technique: Non-IV contrast axial images were obtained through the abdomen and pelvis slightly less than [address] examination of the chest with IV contrast from 09/11/2022. 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 There are surgical clips within the right upper quadrant consistent with prior cholecystectomy. There is evidence of prior L4-L5 laminectomy with orthopedic posterior fusion hardware on each side of midline at L4-L5. A metallic power pack overlies the upper right gluteal region with an electrode extending into the medial right hemipelvis. Excreted IV contrast is seen within the urinary bladder. A calcified granuloma is again seen at the posterior left lower lobe. Otherwise, the lung bases appear clear. The liver does not appear enlarged. No focal liver mass or intrahepatic or extrahepatic biliary duct distention is seen. Surgical clips consistent with prior cholecystectomy are seen within the subhepatic space. The spleen is of unremarkable size and reveals multiple calcified granulomas of varying size within it. No splenic mass is seen. Both the pancreas and adrenal glands appear unremarkable. Excreted contrast is seen into both upper collecting systems of the kidneys. No obvious renal mass or hydronephrosis is seen. Portions of both ureters are seen. The abdominal aorta is mildly tortuous and reveals minimal vascular calcification. However, no abdominal aortic aneurysm or abnormal retroperitoneal lymphadenopathy or hemorrhage is seen. There is no free intraperitoneal air. A small fat-containing umbilical hernia is evident. This measures about 1.7 cm x 1.4 cm sagittal image #119. There is also mild focal weakness of the anterior abdominal wall just above the small fatty umbilical hernia on midline sagittal image #120. No bowel containing ventral hernia is seen. I see no evidence of bowel obstruction or abnormal bowel distention. No abnormal bowel wall thickening is seen. A normal-appearing retrocecal appendix is evident. There are a few scattered small uncomplicated diverticula within the distal descending colon and sigmoid colon. No evidence of diverticulitis is seen. A mild amount of scattered colonic stool is seen. I note food/secretions filling the majority of the gastric lumen. Perhaps the patient has eaten recently. The uterus is surgically absent. The pelvic adnexa otherwise appear unremarkable. Contrast partially distends the urinary bladder which appears grossly unremarkable. A few calcified phleboliths are seen within the lower pelvis. No other pelvic mass, abnormal pelvic lymphadenopathy, or free intraperitoneal fluid is seen. I see no acute fracture or aggressive bone lesion. I see a moderate S-shaped scoliosis within the lower thoracolumbar spine and moderate diffuse degenerative changes with some vacuum disc phenomena within lower thoracic and upper lumbar discs. I also see evidence of prior laminectomies at L4-L5 with posterior L4-L5 fusion hardware on each side of midline and a spacer device at the mid and posterior aspect of L4-L5. There is a mild grade 1 spondylolisthesis of L4 over L5 (a maximum of about 5 mm). In addition, there is an apparent neurostimulator battery pack within the right gluteal region posteriorly with a lead extending into the presacral region on the right. Impression: 1. No acute process is seen within the abdomen or pelvis. 2. Other incidental findings are noted within the abdomen and pelvis, as discussed above.
[2022-09-12 16:14] VITALS: BP 130/60; PULSE 72; O2SAT 94
[2022-09-12] MEDS ORDERED: XARELTO 10 MG TABLET PO ONE (18:00)
[2022-09-18] MEDS ORDERED: Fosamax 70 MG PO SCH (06:00)
== END 2022-09-12 17:00 | disposition home or self-care (01) ==
LOC: MED SURG 10:56
PROVIDERS: ADMIT General Practice; ATTEND General Practice
DX: I26.99 Other pulmonary embolism without acute cor pulmonale (principal); I82.413 Acute embolism and thrombosis of femoral vein, bilateral; R06.09 Other forms of dyspnea; Z79.899 Other long term (current) drug therapy; Z20.828 Contact with and (suspected) exposure to other viral communicable diseases
CPT/HCPCS: 0241U; 36415; 71046; 71260; 74176; 80053; 83880; 85025; 85379; 85610; 93005; 93306; 93970; 94760; G0378; J1650; A9270-GY

== ENCOUNTER 2023-08-07 08:53 | Day surgery (SDC) | payer MEDICARE, OTHER ==
[2023-08-07] MEDS ORDERED: Depo-Medrol 40 MG/ML IM ONE (08:54)
[2023-08-07] MEDS ORDERED: BUPIVACAINE 0.5% VIAL IJ ONE (08:54)
[2023-08-07 10:38] LABS: INR 2.87 (0.8-3.0); PROTIME 28.9 SECONDS (9.4-12.5)
[2023-08-07] MEDS ORDERED: DIPRIVAN 200 MG/20 ML IV ONE (10:43)
[2023-08-07] MEDS ORDERED: Xylocaine-Mpf 2% 5 Ml Vial ONE (10:52)
--- NOTE | 2023-08-07 14:31 | XRAY ---
Indication: Right SI joint injection. Intraoperative fluoroscopy provided for 6 seconds. 2 digital spot images submitted for interpretation demonstrates posterior needle tip projecting over the right SI joint. Correlate with intraoperative findings/report.
[2023-08-07] MEDS ORDERED: Lactated Ringers 1,000 ML IV ONE (14:50)
--- NOTE | 2023-08-07 14:58 | XRAY ---
6 seconds of fluoroscopy was used in surgery for a right sacroiliac joint injection.
== END 2023-08-07 11:10 | disposition home or self-care (01) ==
LOC: SDC-PAIN 08:53
PROVIDERS: ATTEND Psychiatry & Neurology Pain Medicine
DX: M46.1 Sacroiliitis, not elsewhere classified (principal); Z79.01 Long term (current) use of anticoagulants
CPT/HCPCS: 27096; 36415; 72170; 77002; 85610; G0260; 99100; J1030; J2704

== ENCOUNTER 2023-09-11 08:34 | Day surgery (SDC) | payer MEDICARE, OTHER ==
[2023-09-11] MEDS ORDERED: BUPIVACAINE 0.5% VIAL IJ ONE (08:35)
[2023-09-11] MEDS ORDERED: Depo-Medrol 40 MG/ML IM ONE (08:35)
[2023-09-11 09:34] LABS: INR 2.25 (0.8-3.0); PROTIME 23.1 SECONDS (9.4-12.5)
[2023-09-11] MEDS ORDERED: DIPRIVAN 200 MG/20 ML IV ONE (10:08)
[2023-09-11] MEDS ORDERED: Lactated Ringers 1,000 ML IV ONE (13:45)
--- NOTE | 2023-09-11 21:04 | XRAY ---
Indication: Right hip and right greater trochanter bursa injection. Intraoperative fluoroscopy provided for 16 seconds. 2 digital spot image submitted for interpretation demonstrates needle tip lateral to right femur neck with small amount of contrast injected for needle tip placement. Second needle tip lateral to greater trochanter. Correlate with intraoperative findings/report.
--- NOTE | 2023-09-11 21:09 | XRAY ---
Indication: Right knee injection. Intraoperative fluoroscopy provided for 9 seconds. Single digital spot image submitted for interpretation demonstrates needle tip projecting over right femur intercondylar notch. Small amount of contrast injected for needle tip placement. Correlate with intraoperative findings/report.
--- NOTE | 2023-09-11 21:41 | XRAY ---
9 seconds of fluoroscopy was used in surgery for a right intra-articular knee injection.
--- NOTE | 2023-09-11 21:45 | XRAY ---
16 seconds of fluoroscopy in surgery for a right intra-articular hip and right greater trochanteric bursa injection.
== END 2023-09-11 10:39 | disposition home or self-care (01) ==
LOC: SDC-PAIN 08:34
PROVIDERS: ATTEND Psychiatry & Neurology Pain Medicine
DX: M17.11 Unilateral primary osteoarthritis, right knee (principal); M16.11 Unilateral primary osteoarthritis, right hip; M70.61 Trochanteric bursitis, right hip; Z79.01 Long term (current) use of anticoagulants
CPT/HCPCS: 20610; 36415; 73502; 73560; 77002; 85610; J1030; J2704; Q9966

== ENCOUNTER 2023-11-21 08:54 | Day surgery (SDC) | payer MEDICARE, OTHER ==
[2023-11-21] MEDS ORDERED: Depo-Medrol 40 MG/ML IM ONE (08:55)
[2023-11-21] MEDS ORDERED: BUPIVACAINE 0.5% VIAL IJ ONE (08:55)
[2023-11-21 10:17] LABS: INR 1.01 (0.8-3.0)
[2023-11-21] MEDS ORDERED: DIPRIVAN 200 MG/20 ML IV ONE (11:16)
--- NOTE | 2023-11-21 11:43 | XRAY ---
Indication: Bilateral L3-L5 MBB Intraoperative fluoroscopy provided for 45 seconds. Single digital spot image submitted for interpretation demonstrates posterior needle tips projecting over the expected left and right L3-L5 nerve roots. Correlate with intraoperative findings/report. Incidental bilateral L4-L5 posterior fusion hardware
[2023-11-21] MEDS ORDERED: Lactated Ringers 1,000 ML IV ONE (12:05)
--- NOTE | 2023-11-21 13:23 | XRAY ---
45 seconds of fluoroscopy was used in surgery for a bilateral L3-L5 MBB.
== END 2023-11-21 11:48 | disposition home or self-care (01) ==
LOC: SDC-PAIN 08:54
PROVIDERS: ATTEND Psychiatry & Neurology Pain Medicine
DX: M47.816 Spondylosis without myelopathy or radiculopathy, lumbar region (principal); Z79.01 Long term (current) use of anticoagulants
CPT/HCPCS: 36415; 64493; 64494; 72020; 77002; 85610; J1030; J2704

== ENCOUNTER 2023-12-11 12:36 | Day surgery (SDC) | payer MEDICARE, OTHER ==
[2023-12-11] MEDS ORDERED: BUPIVACAINE 0.5% VIAL IJ ONE (12:37)
[2023-12-11] MEDS ORDERED: Depo-Medrol 40 MG/ML IM ONE (12:37)
[2023-12-11 14:09] LABS: INR 1.01 (0.8-3.0)
[2023-12-11] MEDS ORDERED: DIPRIVAN 200 MG/20 ML IV ONE (14:20)
[2023-12-11] MEDS ORDERED: Lactated Ringers 1,000 ML IV ONE (14:27)
--- NOTE | 2023-12-11 15:10 | XRAY ---
Indication: Bilateral L3-L5 MBB. Intraoperative fluoroscopy provided for 39 seconds. 2 digital spot images submitted for interpretation demonstrates posterior needle tips projecting over the expected left and right L3-L5 nerve roots. Correlate with intraoperative findings/report. Incidental bilateral L4-L5 posterior fusion hardware.
--- NOTE | 2023-12-11 15:13 | XRAY ---
39 seconds of fluoroscopy was used in surgery for a bilateral L3-L5 MBB.
== END 2023-12-11 14:58 | disposition home or self-care (01) ==
LOC: SDC-PAIN 12:36
PROVIDERS: ATTEND Psychiatry & Neurology Pain Medicine
DX: M47.816 Spondylosis without myelopathy or radiculopathy, lumbar region (principal); Z79.01 Long term (current) use of anticoagulants
CPT/HCPCS: 36415; 64493; 64494; 72020; 77002; 85610; J1030; J2704

== ENCOUNTER 2024-01-22 06:49 | Day surgery (SDC) | payer MEDICARE, OTHER ==
[2024-01-22] MEDS ORDERED: LIDOCAINE HCL 1% 50 MG/5 ML VL PF IJ ONE (06:50)
[2024-01-22] MEDS ORDERED: Depo-Medrol 40 MG/ML IM ONE (06:50)
[2024-01-22] MEDS ORDERED: BUPIVACAINE 0.5% VIAL IJ ONE (06:50)
[2024-01-22 07:50] LABS: INR 1.08 (0.8-3.0); PROTIME 11.7 SECONDS (9.4-12.5)
[2024-01-22] MEDS ORDERED: DIPRIVAN 200 MG/20 ML IV ONE (08:09)
[2024-01-22] MEDS ORDERED: Lactated Ringers 1,000 ML IV ONE (09:40)
--- NOTE | 2024-01-22 09:49 | XRAY ---
Indication: Right L3-L5 RFA. Intraoperative fluoroscopy provided for 49 seconds. 3 digital spot images submitted for interpretation demonstrates posterior needle tips projecting over expected right L3-L5 nerve roots. Correlate with intraoperative findings/report. Incidental bilateral L4-L5 posterior fusion hardware.
--- NOTE | 2024-01-22 10:59 | XRAY ---
49 seconds of fluoroscopy was used in surgery for a right L3-L5 RFA.
== END 2024-01-22 08:55 | disposition home or self-care (01) ==
LOC: SDC-PAIN 06:49
PROVIDERS: ATTEND Psychiatry & Neurology Pain Medicine
DX: M47.816 Spondylosis without myelopathy or radiculopathy, lumbar region (principal); Z79.01 Long term (current) use of anticoagulants
CPT/HCPCS: 36415; 64635; 64636; 72100; 77002; 85610; J1010; J2001; J2704; J1030

== ENCOUNTER 2024-02-05 10:47 | Day surgery (SDC) | payer MEDICARE, OTHER ==
[2024-02-05] MEDS ORDERED: BUPIVACAINE 0.5% VIAL IJ ONE (10:48)
[2024-02-05] MEDS ORDERED: LIDOCAINE HCL 1% 50 MG/5 ML VL PF IJ ONE ×2 (10:48)
[2024-02-05] MEDS ORDERED: Depo-Medrol 40 MG/ML IM ONE (10:48)
[2024-02-05 12:58] LABS: INR 1.07 (0.8-3.0); PROTIME 11.6 SECONDS (9.4-12.5)
[2024-02-05] MEDS ORDERED: DIPRIVAN 200 MG/20 ML IV ONE ×2 (13:28→13:43)
[2024-02-05] MEDS ORDERED: Lactated Ringers 1,000 ML IV ONE (14:21)
--- NOTE | 2024-02-05 14:37 | XRAY ---
Indication: Left L3-L5 RFA. Intraoperative fluoroscopy provided for 22 seconds. 4 digital spot images submitted for interpretation demonstrates posterior needle tips projecting over expected left L3-L5 nerve roots. Correlate with intraoperative findings/report. Incidental bilateral L4-L5 posterior fusion hardware.
--- NOTE | 2024-02-05 17:06 | XRAY ---
22 seconds of fluoroscopy was used in surgery for a left L3-L5 RFA.
== END 2024-02-05 14:20 | disposition home or self-care (01) ==
LOC: SDC-PAIN 10:47
PROVIDERS: ATTEND Psychiatry & Neurology Pain Medicine
DX: M47.816 Spondylosis without myelopathy or radiculopathy, lumbar region (principal); Z79.01 Long term (current) use of anticoagulants
CPT/HCPCS: 36415; 64635; 64636; 72100; 77002; 85610; 99100; J1010; J2001; J2704

== ENCOUNTER 2024-03-18 11:18 | Day surgery (SDC) | payer MEDICARE, OTHER ==
[2024-03-18] MEDS ORDERED: Decadron 4 MG INJ IV ONE (11:19)
[2024-03-18] MEDS ORDERED: Sodium Chloride 0.9(Preservative Free) 10 ML IJ ONE (11:19)
[2024-03-18 12:15] LABS: INR 1.05 (0.8-3.0); PROTIME 11.4 SECONDS (9.4-12.5)
[2024-03-18] MEDS ORDERED: DIPRIVAN 200 MG/20 ML IV ONE (13:16)
[2024-03-18] MEDS ORDERED: Lactated Ringers 1,000 ML IV ONE (13:16)
--- NOTE | 2024-03-18 15:27 | XRAY ---
Indication: Right L4-S1 transforaminal YAN. Intraoperative fluoroscopy provided for 28 seconds. 6 digital spot images submitted for interpretation demonstrates posterior needle tip projecting over the expected right L4 and L5 nerve roots. Small amount of contrast injected for needle tip placement. Correlate with intraoperative findings/report. Incidental bilateral L4-L5 posterior fusion hardware
--- NOTE | 2024-03-18 15:35 | XRAY ---
28 seconds of fluoroscopy was used in surgery for a right L4-S1 transforaminal YAN.
== END 2024-03-18 13:43 | disposition home or self-care (01) ==
LOC: SDC-PAIN 11:18
PROVIDERS: ATTEND Psychiatry & Neurology Pain Medicine
DX: M54.16 Radiculopathy, lumbar region (principal); Z79.01 Long term (current) use of anticoagulants
CPT/HCPCS: 36415; 64483; 64484; 72100; 77003; 85610; J1100; J2704; Q9966

== ENCOUNTER 2024-06-10 07:24 | Day surgery (SDC) | payer MEDICARE, OTHER ==
[2024-06-10] MEDS ORDERED: LIDOCAINE HCL 1% 50 MG/5 ML VL PF IJ ONE (07:25)
[2024-06-10] MEDS ORDERED: Sodium Chloride 0.9(Preservative Free) 10 ML IJ ONE (07:25)
[2024-06-10] MEDS ORDERED: Depo-Medrol 40 MG/ML IM ONE (07:25)
[2024-06-10 08:49] LABS: INR 1.04 (0.8-3.0); PROTIME 11.3 SECONDS (9.4-12.5)
[2024-06-10] MEDS ORDERED: DIPRIVAN 200 MG/20 ML IV ONE (09:20)
[2024-06-10] MEDS ORDERED: Lactated Ringers 1,000 ML IV ONE (09:30)
--- NOTE | 2024-06-10 10:26 | XRAY ---
Indication: Caudal YAN. Intraoperative fluoroscopy was provided for 14 seconds. 3 digital spot image submitted for interpretation demonstrates caudal needle tip projecting mid sacrum. Small amount of contrast injected for needle tip placement. Correlate with intraoperative findings/report.
--- NOTE | 2024-06-10 12:27 | XRAY ---
14 seconds of fluoroscopy was used in surgery for a caudal YAN.
== END 2024-06-10 09:55 | disposition home or self-care (01) ==
LOC: SDC-PAIN 07:24
PROVIDERS: ATTEND Psychiatry & Neurology Pain Medicine
DX: M54.16 Radiculopathy, lumbar region (principal); Z79.01 Long term (current) use of anticoagulants
CPT/HCPCS: 36415; 62323; 72220; 77003; 85610; J2001; J2704; Q9966

== ENCOUNTER 2024-07-15 12:13 | Day surgery (SDC) | payer MEDICARE, OTHER ==
[2024-07-15] MEDS ORDERED: BUPIVACAINE 0.5% VIAL IJ ONE (12:14)
[2024-07-15] MEDS ORDERED: Depo-Medrol 40 MG/ML IM ONE (12:14)
[2024-07-15 14:13] LABS: INR 2.36 (0.8-3.0); PROTIME 24.3 SECONDS (9.4-12.5)
[2024-07-15] MEDS ORDERED: Lactated Ringers 1,000 ML IV ONE (14:48)
[2024-07-15] MEDS ORDERED: DIPRIVAN 200 MG/20 ML IV ONE (15:20)
--- NOTE | 2024-07-15 16:26 | XRAY ---
Indication: Right hip injection. Intraoperative fluoroscopy provided for 21 seconds. Single digital spot images submitted for interpretation demonstrates needle tip lateral to the right femur neck. Small amount of contrast injected for needle tip placement. Correlate with intraoperative findings/report.
--- NOTE | 2024-07-15 16:27 | XRAY ---
Indication: Right knee injection. Intraoperative fluoroscopy provided for 7 seconds. Single digital spot image submitted for interpretation demonstrates needle tip projecting over right femur intercondylar notch. Small amount of contrast injected for needle tip placement. Correlate with intraoperative findings/report.
--- NOTE | 2024-07-15 17:13 | XRAY ---
7 seconds of fluoroscopy was used in surgery for a right intra-articular knee injection.
--- NOTE | 2024-07-15 17:13 | XRAY ---
21 seconds of fluoroscopy was used in surgery for a right intra-articular hip injection.
== END 2024-07-15 15:51 | disposition home or self-care (01) ==
LOC: SDC-PAIN 12:13
PROVIDERS: ATTEND Psychiatry & Neurology Pain Medicine
DX: M17.11 Unilateral primary osteoarthritis, right knee (principal); M16.11 Unilateral primary osteoarthritis, right hip; Z79.01 Long term (current) use of anticoagulants
CPT/HCPCS: 20610; 36415; 73501; 73560; 77002; 85610; J2704; Q9966

== ENCOUNTER 2024-11-16 10:10 | Day surgery (SDC) | payer MEDICARE, OTHER ==
--- NOTE | 2024-11-16 09:18 | HP ---
HISTORY OF PRESENT ILLNESS: She has had a positive Cologuard. Last colonoscopy 14 years ago. She had a barium enema for incomplete at that time. No bright bloody stools. No change in bowel habits. No new pain. Family history negative for colon cancer. PAST MEDICAL HISTORY: Glaucoma, history of DVT, hypertension, PE, reflux, heartburn, osteoporosis, and heart disease. HOME MEDICATIONS: Latanoprost eye drops, PreserVision, warfarin, desmopressin, alendronate, furosemide, Claritin, potassium chloride, metoprolol, vitamin C, Citracal plus vitamin D, Centrum Silver. ALLERGIES: Percocet, sulfa, Vicodin, and she is allergic to Z-Ko. PAST SURGICAL HISTORY: Had cholecystectomy and knee arthroplasty in the past, hysterectomy, cataract surgery, back surgery, carpal tunnel in the past, had a tubal in the past. SOCIAL HISTORY: No smoking. Occasional alcohol use. FAMILY HISTORY: Mom had [place] and COPD. Negative for colon cancer. REVIEW OF SYSTEMS: Twelve systems reviewed. No chest pain or palpitations. Otherwise, pertinent for medical problems noted above. PHYSICAL EXAMINATION: GENERAL: Height 5 feet 4 inches. BMI 39.82. No acute distress. HEENT: Sclerae anicteric. Extraocular movements intact. Mucous membranes moist. NECK: No JVD. CHEST: Equal excursion, nonlabored breathing. CARDIOVASCULAR: Regular rate and rhythm. ABDOMEN: Soft. SKIN: Dry. EXTREMITIES: No cyanosis or edema. NEUROLOGIC: Alert, moving all extremities symmetrically. PSYCHIATRIC: Appropriate mood and affect. RECTAL: Deferred until time of endoscopy exam. IMPRESSION: Positive Cologuard. Needs colonoscopy. Risks explained in detail including bleeding and infection; risk of bowel injury or perforation; risk of missed or nondiagnosis or incomplete exam possibly requiring other procedures or referral; risk of anesthesia or sedation; risk of bowel prep, not limited to. We will have her hold her blood thinners preop and scheduled outpatient colonoscopy under MAC anesthesia. Otherwise, continue medications for hypertension, reflux, glaucoma, and heart disease. We will proceed with outpatient colonoscopy.
[2024-11-16] MEDS ORDERED: Lactated Ringers 1,000 ML IV ONE (10:39)
[2024-11-16] MEDS: Lactated Ringers 1,000 ML IV SCH (11:02)
[2024-11-16 11:47] LABS: ISTAT K 4.2 mmol/L (3.5-4.9)
[2024-11-16 11:48] LABS: ISTAT CREA 1.3 mg/dL (0.6-1.3); ISTAT iCA 1.15 mmol/L (1.12-1.32)
[2024-11-16] MEDS ORDERED: propofoL IV ONE ×3 (12:00→12:32)
[2024-11-16] MEDS ORDERED: Versed 2 MG/2 ML Injection ONE (12:06)
[2024-11-16 13:27] VITALS: PULSE 65; RESP 18; TEMP 96.1; O2SAT 97
[2024-11-16 13:35] VITALS: BP 112/70
--- NOTE | 2024-11-17 09:43 | OP ---
SURGERY DATE/TIME: 11/16/2024 [id number] PREOPERATIVE DIAGNOSES: 1) History of positive Cologuard. 2) History of difficult colonoscopy last colonoscopy. POSTOPERATIVE DIAGNOSES: 1) ASA class 3. 2) Tortuous colon. 3) Bare, limited prep. 4) Diverticulosis left colon. 5) Polyps. 6) Normal terminal ileum. PROCEDURE: 1) Colonoscopy to terminal ileum. 2) Ileostomy. 3) Hot snare biopsy descending colon polyp. 4) Hot biopsy small vague raised area versus early polyp versus normal variation ileocecal valve. 5) Hot biopsy polypectomy of transverse colon polyp. SURGEON: Pedro Ascencio MD ANESTHESIA: MAC. ESTIMATED BLOOD LOSS: Minimal. INDICATIONS: Consent obtained. DESCRIPTION OF PROCEDURE AND FINDINGS: Patient taken to endoscopy room. MAC anesthesia induced. After official time-out, no disagreement with planned procedure. Digital rectal exam did not reveal any rectal masses. Videocolonoscope was inserted and passed up around to the sigmoid, descending, transverse colon. Patient's colon became quite tortuous here, required 2 different staff members and placing her on her back. Finally, the scope was able to be pulled, passed around to the cecum. Appendiceal photo documented as well as the ileocecal valve. The scope actually was able to go up the terminal ileum, which was grossly unremarkable. The scope was withdrawn. There was a little small vague raised area on the ileocecal valve, whether just normal variation versus early hyperplastic lesion, removed with hot biopsy forceps. Good hemostasis noted. Otherwise, with slight retroflexion there was a 4.5 mm polyp that was removed with hot snare polypectomy. Staff said the specimen was retrieved. Scope was then carefully withdrawn. Again ASA class 3. The scope was withdrawn over the next 12 minutes, suction irrigating the liquidy stool as well as possible. In the transverse colon, there were small polyps removed with hot biopsy polypectomy, this is about size 2.5 mm. Good hemostasis noted. She had a few diverticula in the left colon. There was no sign of any large polyps, masses, or obstructing lesions. Again, the prep limited the exam for very small lesions. Scope was withdrawn. Patient tolerated the procedure well. Will see her back in the office 1 or 2 weeks to go over the results. She is going to need a better prep next endoscopy. Went to waiting area to look for family to discuss findings.
== END 2024-11-16 13:43 | disposition home or self-care (01) ==
LOC: SDC 10:10
PROVIDERS: ATTEND Surgery
DX: K57.30 Diverticulosis of large intestine without perforation or abscess without bleeding (principal); R19.5 Other fecal abnormalities; D12.2 Benign neoplasm of ascending colon; D12.3 Benign neoplasm of transverse colon
CPT/HCPCS: 36415; 80047; 93005; J2250; J2704

== ENCOUNTER 2025-06-30 11:09 | Day surgery (SDC) | payer MEDICARE, OTHER ==
[2025-06-30] MEDS ORDERED: BUPIVACAINE 0.5% VIAL IJ ONE (11:10)
[2025-06-30] MEDS ORDERED: methylPREDNISolone acetate IM ONE (11:10)
[2025-06-30 11:47] LABS: INR 2.47 (0.8-3.0); PROTIME 25.4 SECONDS (9.4-12.5)
[2025-06-30] MEDS ORDERED: propofoL IV ONE (12:30)
[2025-06-30] MEDS ORDERED: Lactated Ringers 1,000 ML IV ONE (12:44)
--- NOTE | 2025-06-30 19:35 | XRAY ---
Indication: Right knee injection. Intraoperative fluoroscopy provided for 6 seconds. Single digital spot image submitted for interpretation demonstrates needle tip projecting over right femur intercondylar notch. Small amount of contrast injected for needle tip placement. Correlate with intraoperative findings/report.
--- NOTE | 2025-06-30 19:38 | XRAY ---
6 seconds of fluoroscopy was used in surgery for a right intra-articular knee injection
== END 2025-06-30 12:56 | disposition home or self-care (01) ==
LOC: SDC-PAIN 11:09
PROVIDERS: ATTEND Psychiatry & Neurology Pain Medicine
DX: M17.11 Unilateral primary osteoarthritis, right knee (principal); Z79.01 Long term (current) use of anticoagulants

== ENCOUNTER 2025-07-28 11:59 | Day surgery (SDC) | payer MEDICARE, OTHER ==
[2025-07-28] MEDS ORDERED: LIDOCAINE HCL 1% 50 MG/5 ML VL IJ ONE (12:00)
[2025-07-28] MEDS ORDERED: methylPREDNISolone acetate IM ONE (12:00)
[2025-07-28] MEDS ORDERED: propofoL IV ONE ×2 (13:43→14:49)
[2025-07-28 13:54] LABS: INR 2.64 (0.8-3.0); PROTIME 28.5 SECONDS (9.4-12.5)
--- NOTE | 2025-07-28 16:56 | XRAY ---
Indication: Right cluneal nerve block. Intraoperative fluoroscopy provided for 17 seconds. Single digital spot image submitted for interpretation demonstrates 3 posterior needle tips projecting over right iliac crest. Correlate with intraoperative findings/report. Incidental incompletely visualized overlying electronic device with single lead and lower lumbar fusion hardware.
--- NOTE | 2025-07-28 16:58 | XRAY ---
17 seconds of fluoroscopy was used in surgery for a right cluneal nerve block injection.
[2025-07-28] MEDS ORDERED: Lactated Ringers 1,000 ML IV ONE (17:14)
== END 2025-07-28 15:25 | disposition home or self-care (01) ==
LOC: SDC-PAIN 11:59
PROVIDERS: ATTEND Psychiatry & Neurology Pain Medicine
DX: M46.1 Sacroiliitis, not elsewhere classified (principal); Z79.01 Long term (current) use of anticoagulants

== ENCOUNTER 2025-08-26 12:07 | Day surgery (SDC) | payer MEDICARE, OTHER ==
[2025-08-26] MEDS ORDERED: methylPREDNISolone acetate IM ONE (12:08)
[2025-08-26] MEDS ORDERED: BUPIVACAINE 0.5% VIAL IJ ONE (12:08)
[2025-08-26 13:08] LABS: INR 2.69 (0.8-3.0); PROTIME 29.0 SECONDS (9.4-12.5)
[2025-08-26] MEDS ORDERED: propofoL IV ONE (13:43)
[2025-08-26] MEDS ORDERED: Lactated Ringers 1,000 ML IV ONE (14:34)
--- NOTE | 2025-08-26 16:39 | XRAY ---
Indication: Right hip and greater trochanter bursa injection. Intraoperative fluoroscopy provided for 21 seconds. 3 digital spot image submitted for interpretation demonstrates needle tip projecting lateral to right femur neck. 2nd needle tip lateral to greater trochanter. Small amount of contrast injected for needle tip placement. Correlate with intraoperative findings/report.
--- NOTE | 2025-08-26 17:00 | XRAY ---
21 seconds of fluoroscopy was used in surgery for a right intra-articular hip and greater trochanteric bursa injection.
== END 2025-08-26 14:15 | disposition home or self-care (01) ==
LOC: SDC-PAIN 12:07
PROVIDERS: ATTEND Psychiatry & Neurology Pain Medicine
DX: M16.11 Unilateral primary osteoarthritis, right hip (principal); Z79.01 Long term (current) use of anticoagulants